=== PATIENT | male | born 1955 | race Caucasian/White ===

== ENCOUNTER 2018-07-04 12:54 | Day surgery (SDC) | payer OTHER, SELFPAY ==
[2018-07-04 13:21] VITALS: BP 159/77; PULSE 84; RESP 18; TEMP 36.9; O2SAT 100; BMI 22.9
[2018-07-04] MEDS: SODIUM CHLORIDE 0.9% 1,000 ML 200 ML IV (13:28)
--- NOTE | 2018-07-04 13:47 | P.HP_ITS ---
History of Present Illness Date Patient Seen: 07/04/18 Time Patient Seen: 13:42 Chief complaint: colonoscopy 12446 Narrative: 62-year-old male with family history of colon cancer in his father. His father was actually treated for the disease in his late 50s. Currently his father is doing well with no evidence of disease. Patient has undergone screening colonoscopy in the past because of the family history. He presents now for such. It has been approximately 5 years since his last exam. Patient currently denies any gastrointestinal symptoms. No nausea, vomiting, loss of appetite, abdominal pain, unexplained weight loss, change in bowel habits, constipation, diarrhea, melena, hematochezia, or bright red blood per rectum. Patient History Medical History Cardiac arrhythmia (Acute) Chronic low back pain (Acute) Family history of colon cancer in father (Acute) Hypertension (Acute) Surgical History History of colonoscopy (Acute) History of excision of epidermal inclusion cyst (Acute) History of tonsillectomy (Acute) Family & Social History Family History: Reviewed 07/04/18 by Geronimo Barriga MD Social History: household members spouse Nonsmoker No alcohol use Meds Home Medications Medication Instructions Recorded Confirmed Type Fish Oil (#FISH OIL) 1 iu PO Q DAY #0 01/25/12 07/04/18 History Fluticasone Propionate (FLONASE) 2 spray INTRANASAL HS #1 inh 03/26/12 07/04/18 Rx potassium gluconate 99 mg PO QDAY #30 tab 06/27/16 07/04/18 History cholecalciferol (vitamin D3) 5,000 unit PO DAILY 07/04/18 07/04/18 History [Vitamin D3] metoprolol tartrate 25 mg PO BID 07/04/18 07/04/18 History turmeric root extract 500 mg PO DAILY 07/04/18 07/04/18 History Allergies Allergy/AdvReac Type Severity Reaction Status Date / Time watermelon Allergy Severe THROAT Unverified 03/06/18 13:00 SWELLING Review of Systems Review of Systems All systems reviewed & are unremarkable except as noted in HPI and below Exam Vital Signs (past 8 hours): - 07/04/18 13:21 Temperature 98.4 F Pulse Rate 84 Respiratory Rate 18 Blood Pressure 159/77 H Pulse Oximetry 100 Oxygen Delivery Method Heated High Flow Narrative Exam Narrative: Well-nourished well-developed male in no acute distress. Alert oriented x3 Sclera nonicteric Chest clear to auscultation bilaterally without crackles or wheezes. He has irregular rhythm with compensatory pauses. No murmurs. Abdomen soft, nondistended, nontender. Extremities show no clubbing, cyanosis, or edema Objective Labs Labs: No recent laboratory or radiographic studies review Assessment & Plan Plan: Assessment/Plan Narrative: 62-year-old male with family history of colon cancer in his father who now requires colorectal screening. It has been 5 years since his last examination. Colonoscopy is currently recommended. Technical details of the procedure were discussed at length. Risks, benefits, alternatives were explained. Risks including but not limited to sedation, aspiration, bleeding, pain, missed lesion , incomplete examination, need for further radiographic studies, colonic perforation, need for major abdominal surgery, and all attendant risks of major surgery were discussed in detail. All questions were answered to his satisfaction, and he voiced understanding. Consent was placed on the chart. We will proceed as above.
--- NOTE | 2018-07-04 13:47 | PM.PREOP ---
Pre-operative Note Interval Note Pre-op Check: Yes History & Physical Reviewed by Physician, Yes Exam Performed and Yes History & Physical exam performed today by Physician Changes: No ASA Class (for procedural sedation): II
[2018-07-04] MEDS: MIDAZOLAM 5 MG/5 ML VIAL IV (14:02)
[2018-07-04] MEDS: fentaNYL 250 MCG/5 ML INJ IV (14:03)
[2018-07-04 14:10] VITALS: BP 129/64; PULSE 70; RESP 16; TEMP 36.9; O2SAT 100
--- NOTE | 2018-07-04 14:10 | PM.OP.ENDO ---
Operative Date/Time/Diagnoses Date of procedure: 07/04/18 Time of procedure: 14:10 Pre-op diagnosis: Family history of colon cancer in primary relatives Post-op diagnosis: same Procedure & Clinicians Study performed: 1. Sedation per surgeon 2. Colonoscopy Same procedure as scheduled: Yes Indications: 62-year-old male with family history of colon cancer in his father. Patient requires surveillance because of his above average risk. It has been at least 5 years since his last examination. Colonoscopy is currently recommended. Surgeon: Geronimo Barriga Procedure Notes SCOAP/Timeout: Yes Procedure in detail: After obtaining informed consent, the patient was brought to the GI suite and placed in the left lateral decubitus position on the examination table. After placement of appropriate monitors, the patient was given incremental doses of Versed and Fentanyl until an appropriate level of sedation was achieved. A time out was held per SCOAP protocol. A digital rectal examination was performed and did not reveal any masses or obstructing lesions. The colonoscope was gently passed into the patient's anus and the entire colon navigated to the level of the cecum with minimal difficulty. Terminal ileum was intubated and noted to be grossly normal. Once in the cecum, the scope was withdrawn being sure to go before and beyond all mucosal folds and prominences and get an excellent examination. The findings are noted above. At the level of the rectal vault, the scope was retroflexed and the internal anal canal was examined. The scope was straightened and air aspirated from the colon. The instrument was removed from the patient's body and the procedure was concluded. The patient was allowed to awaken from sedation without difficulty and taken to the post-anesthesia care unit in good condition. Scope withdrawal time: 7:03 min Sedation minutes: 17 Findings: other findings (Normal colon and rectum) Specimen(s): none sent Complications: none Recommendations: Colonscopy in 5 years (Due to family history and primary relative) and High fiber diet Plan for aftercare: 1. Discharged home Follow up: as needed Disposition: same day surgery
== END 2018-07-04 15:00 | disposition home or self-care (01) ==
PROVIDERS: Family Provider Internal Medicine; PCP Internal Medicine; Visit Provider Surgery
PROC: 0DJD8ZZ Inspection of Lower Intestinal Tract, Via Natural or Artificial Opening Endoscopic (ICD-10-PCS; CPT 45378; principal; 2018-07-04 14:00)
DX: Z12.11 Encounter for screening for malignant neoplasm of colon (principal); Z80.0 Family history of malignant neoplasm of digestive organs
CPT/HCPCS: 45378; 99152; J2250; J3010

== ENCOUNTER → 2018-10-11 11:12 | Outpatient (CLI) | payer OTHER, SELFPAY ==
--- NOTE | 2018-10-11 11:14 | DI.RAD.S_ITS ---
PROCEDURE: XR CHEST 2V INDICATIONS: cough TECHNIQUE: 2 views of the chest were acquired. COMPARISON: [facility], CHEST 2 VIEW, 03/02/2016, 12:30. [facility], CHEST 2 VIEW, 01/11/2012, 15:11. [facility], CHEST 1 VIEW, 12/20/2013, 2:50. FINDINGS: Surgical changes and devices: None. Lungs and pleura: No pleural effusions or pneumothorax. Lungs are clear. Mediastinum: Mediastinal contours are normal. Heart size is normal. Bones and chest wall: No suspicious bony abnormalities. Soft tissues appear unremarkable. IMPRESSION: No acute cardiopulmonary disease. Dictated by: Lucy Almeida M.D. on 10/11/2018 at 13:16 Approved by: Lucy Almeida M.D. on 10/11/2018 at 13:16
[2018-10-11 11:42] LABS: Add Manual Diff / Slide Review NO; Basophils Percent Auto 0.8 % (0-2); Eosinophils Percent Auto 1.1 % (2-4); Hematocrit 42.3 % (41-53); Hemoglobin 14.3 g/dL (13.5-17.5); Mean Corpuscular HGB Conc 33.7 % (30-36); Mean Corpuscular Volume 85.9 fL (80-100); Monocytes Percent Auto 7.5 % (3-14); Neutrophils Absolute Auto 4100 /uL (3000-5900); Neutrophils Percent Auto 58.6 % (50-75); Platelet Count 245 X10^3/uL (150-400); Red Blood Cell Count 4.93 X10^6/uL (4.5-5.9); Red Cell Distribution Width 13.6 % (11.6-14.8); White Blood Cell Count 7.1 X10^3/uL (4.5-11.0)
[2018-10-11 11:44] LABS: Alanine Aminotransferase 29 IU/L (21-72); Albumin 4.5 g/dL (3.5-5.0); Albumin Globulin Ratio 1.9 (1.0-2.8); Alkaline Phosphatase 51 U/L (38-126); Aspartate Aminotransferase 20 IU/L (17-59); BUN Creatinine Ratio 20.9 (6-22); Bilirubin Total 0.6 mg/dL (0.2-1.3); Blood Urea Nitrogen 23 mg/dL (9-20); Calcium 9.9 mg/dL (8.4-10.2); Carbon Dioxide 31 mmol/L (22-32); Chloride 99 mmol/L (98-107); Estimated Glomerular Filt Rate > 60.0 mL/min (>60); Globulin 2.4 g/dL (1.7-4.1); Glucose 94 mg/dL (80-110); HEMOLYSIS < 15 (0-50); Potassium 4.4 mmol/L (3.4-5.1); Sodium 141 mmol/L (137-145); Total Protein 6.9 g/dL (6.3-8.2)
[2018-10-11 12:04] LABS: C-Reactive Protein Quant < 0.5 mg/dL (<1.0)
[2018-10-11 12:12] LABS: Erythrocyte Sedimentation Rate 2 MM/HR (0-15)
[2018-10-11 12:13] LABS: Thyroid Stimulating Hormone 1.15 uIU/mL (0.47-4.68)
[2018-10-11 12:14] LABS: Free T4, Direct Thyroxine 1.09 ng/dL (0.78-2.19)
[2018-10-15 08:58] LABS: Testosterone Free 72.5 pg/mL (35.0-155.0); Testosterone Total 509 ng/dL (250-1100)
== END ==
PROVIDERS: PCP Internal Medicine; Visit Provider Internal Medicine
DX: R05 Cough (principal); E78.5 Hyperlipidemia, unspecified; I10 Essential (primary) hypertension; R53.83 Other fatigue
CPT/HCPCS: 36415; 71046; 80053; 84402; 84403; 84439; 84443; 85025; 85651; 86140

== ENCOUNTER → 2018-11-22 14:40 | Outpatient (CLI) | payer OTHER, SELFPAY ==
--- NOTE | 2018-12-02 07:21 | PM.PFT.1 ---
Pulmonary Function Test Referral & Results Date Patient Seen: 12/23/18 Requesting provider: Too Mckeon Indication: Cough Results: The spirometry demonstrates an FVC of 4.68 L which is 90% of predicted. The FEV1 was measured at 3.80 L which is 106% of predicted. The FEV1/FVC ratio was 81 which is 108% of predicted. Following the administration of bronchodilator there was no appreciable change in above normal numbers. Lung volumes show an SVC of 4.75 L which is 100% of predicted. The diffusing capacity was measured at 26.93 which is 83% of predicted. The maximum voluntary ventilation was normal Interpretation: This study demonstrates normal pulmonary function. No etiology for cough identified
== END ==
PROVIDERS: Family Provider Internal Medicine; PCP Internal Medicine; Visit Provider Internal Medicine
DX: R05 Cough (principal)
CPT/HCPCS: 94060; 94726; 94729

== ENCOUNTER → 2019-05-26 09:26 | Outpatient (CLI) | payer OTHER, SELFPAY ==
--- NOTE | 2019-05-26 09:30 | DI.RAD.S_ITS ---
PROCEDURE: XR SACRUM COCCYX MIN 2V INDICATIONS: BACK PAIN AND PELVIS AREA TECHNIQUE: 3 views of the sacrum and coccyx acquired. COMPARISON: None. FINDINGS: Bones: No fractures or dislocations. No suspicious bony lesions. Lower lumbar spondylosis. Sacroiliac joints appear intact without ankylosis or erosions. Ununited L5 posterior elements. Soft tissues: Visualized bowel gas pattern is normal. No suspicious soft tissue densities. IMPRESSION: Lower lumbar spondylosis. Dictated by: Avila Juarez M.D. on 05/26/2019 at 10:15 Approved by: Avila Juarez M.D. on 05/26/2019 at 10:17
== END ==
PROVIDERS: PCP Internal Medicine; Visit Provider Chiropractor
DX: M47.896 Other spondylosis, lumbar region (principal)
CPT/HCPCS: 72220

== ENCOUNTER → 2019-12-20 07:30 | Outpatient (CLI) | payer OTHER, SELFPAY ==
[2019-12-20 09:28] LABS: Add Manual Diff / Slide Review NO; Basophils Absolute Auto 0 /uL (0-100); Basophils Percent Auto 0.3 % (0-2); Eosinophils Absolute Auto 100 /uL (0-450); Eosinophils Percent Auto 1.8 % (2-4); Hematocrit 41.8 % (41-53); Hemoglobin 14.4 g/dL (13.5-17.5); Lymphocytes Absolute Auto 2400 /uL (1100-4500); Lymphocytes Percent Auto 38.6 % (25-40); Mean Corpuscular HGB Conc 34.5 % (30-36); Mean Corpuscular Hemoglobin 29.5 PG (26-34); Mean Corpuscular Volume 85.6 fL (80-100); Monocytes Absolute Auto 500 /uL (0-900); Monocytes Percent Auto 8.2 % (3-14); Neutrophils Absolute Auto 3200 /uL (1500-7000); Neutrophils Percent Auto 51.1 % (50-75); Platelet Count 268 X10^3/uL (150-400); Red Blood Cell Count 4.89 X10^6/uL (4.5-5.9); Red Cell Distribution Width 13.6 % (11.6-14.8); White Blood Cell Count 6.2 X10^3/uL (4.5-11.0)
[2019-12-20 09:36] LABS: Alanine Aminotransferase 19 IU/L (<50); Albumin 4.2 g/dL (3.5-5.0); Albumin Globulin Ratio 1.4 (1.0-2.8); Alkaline Phosphatase 55 U/L (38-126); Aspartate Aminotransferase 26 IU/L (17-59); Bilirubin Total 0.8 mg/dL (0.2-1.3); Blood Urea Nitrogen 17 mg/dL (9-20); Calcium 9.6 mg/dL (8.4-10.2); Carbon Dioxide 28 mmol/L (22-32); Chloride 103 mmol/L (98-107); Cholesterol 201 mg/dL (140-199); Estimated Glomerular Filt Rate > 60.0 mL/min (>60); Globulin 2.9 g/dL (1.7-4.1); Glucose 90 mg/dL (80-110); HDL Cholesterol 52 mg/dL (40-60); HEMOLYSIS < 15 (0-50); LDL Cholesterol Calculated 136 mg/dL (<100); Magnesium 2.4 mg/dL (1.6-2.3); Potassium 4.4 mmol/L (3.4-5.1); Sodium 140 mmol/L (137-145); Total Protein 7.1 g/dL (6.3-8.2); Triglycerides 67 mg/dL (35-150)
[2019-12-20 09:41] LABS: C-Reactive Protein Quant < 0.5 mg/dL (<1.0)
[2019-12-20 09:46] LABS: Free T4, Direct Thyroxine 1.07 ng/dL (0.78-2.19)
[2019-12-20 10:00] LABS: Thyroid Stimulating Hormone 0.81 uIU/mL (0.47-4.68)
[2019-12-20 10:02] LABS: Prostate Specific Antigen Scrn 2.64 ng/mL (0.1-4.0)
[2019-12-20 10:22] LABS: Erythrocyte Sedimentation Rate 1 MM/HR (0-15)
[2019-12-24 17:24] LABS: Testosterone Free 86.4 pg/mL (35.0-155.0); Testosterone Total 709 ng/dL (250-1100)
== END ==
PROVIDERS: PCP Internal Medicine; Visit Provider Internal Medicine
DX: E78.5 Hyperlipidemia, unspecified (principal); F41.9 Anxiety disorder, unspecified; I10 Essential (primary) hypertension; I49.9 Cardiac arrhythmia, unspecified; N52.9 Male erectile dysfunction, unspecified; R53.83 Other fatigue; Z12.5 Encounter for screening for malignant neoplasm of prostate
CPT/HCPCS: 80053; 80061; 83735; 84402; 84403; 84439; 84443; 85025; 85651; 86140; G0103

== ENCOUNTER → 2019-12-22 13:53 | Outpatient (CLI) | payer OTHER, SELFPAY ==
--- NOTE | 2020-01-15 08:23 | PM.CARDMON.1 ---
Fire Management Specialist Report Referral & Results Date Patient Seen: 12/22/19 Requesting provider: Too Mckeon Indication: Dysrhythmia Duration of monitoring (days): 14 Diary information: There were 12 patient triggered events and 3 patient diary entries Triggered events were associated variably with sinus rhythm, PACs and 110 beat run of SVT at a rate of 153 beats per minute Patient diary events were associated with sinus rhythm Data: Minimum overall heart rate was 50 beats per minute at 11:49 on 01/03/2020 Maximum sinus heart rate was 133 beats per minute at 18:50 on 12/28/2019 Maximum overall heart rate was 174 beats per minute at 22:56 on 12/22/2019 during a 4 beat run of what looks to be SVT (computer called ventricular tachycardia but this appears to be narrow complex and much more likely to be supraventricular in origin) Less than 1% of identified beats or either ventricular supraventricular ectopic in origin Impression: As above patient with rare ventricular supraventricular ectopic beats. A single 10 beat run of SVT at a rate of 153 beats per minute was present. No serious dysrhythmias identified on this study
== END ==
PROVIDERS: PCP Internal Medicine; Visit Provider Internal Medicine
DX: I49.9 Cardiac arrhythmia, unspecified (principal)
CPT/HCPCS: 0296T; 0298T